=== PATIENT | male | born 1990 | race American Indian/Alaskan Native ===

== ENCOUNTER 2016-12-19 07:17 | Emergency (ER) | payer OTHER ==
[2016-12-19] MEDS ORDERED: NORCO 5/325 PO ONE (07:49)
[2016-12-19] MEDS ORDERED: BOOSTRIX IM ONE (07:49)
[2016-12-19] MEDS ORDERED: TRIPLE ANTIBIOTIC TP ONE (07:50)
[2016-12-19] MEDS ORDERED: XYLOCAINE 1% MPF 5 mL INFILTRATI ONE (08:22)
--- NOTE | 2016-12-19 09:40 | Emergency Department Report ---
- General Chief Complaint: Wound/Laceration Stated Complaint: NOSE LAC Time Seen by Provider: 12/19/16 07:48 Source: patient Mode of arrival: Ambulatory Limitations: No Limitations - History of Present Illness Initial Comments: Patient presents with right nasal laceration. He states that he was sleeping this morning with a broom that the top had broken off with metal exposed, he states his dog hit the perineum and it lacerated his nose. He is not up-to- date on his tetanus shot. He complains of pain 06/13. His blood pressure is slightly elevated, he states he has no history of hypertension. -: Sudden Location: face Place: home Patient Tetanus UTD: No Context: accidental Associated Symptoms: pain - Related Data Previous Rx's Medication Instructions Recorded Last Taken Type Cephalexin [Keflex] 500 mg PO Q12HR #14 cap 12/19/16 Unknown Rx Ibuprofen [Motrin 800 MG tab] 800 mg PO Q8HR PRN #20 tablet 12/19/16 Unknown Rx Allergies Allergy/AdvReac Type Severity Reaction Status Date / Time No Known Allergies Allergy Unverified 12/19/16 07:26 ED Review of Systems ROS: Stated complaint: NOSE LAC Other details as noted in HPI Constitutional: denies: chills, fever ENT: other (patient admits to breathe normally through her right nostril). denies: ear pain, throat pain Respiratory: denies: cough, shortness of breath, wheezing Cardiovascular: denies: chest pain, palpitations Endocrine: no symptoms reported Gastrointestinal: denies: abdominal pain, nausea, diarrhea Musculoskeletal: other. denies: back pain, joint swelling, arthralgia Skin: denies: rash, lesions Neurological: denies: headache, weakness, paresthesias ED Past Medical Hx - Past Medical History Previous Medical History?: No - Surgical History Past Surgical History?: No - Social History Smoking Status: Never Smoker Substance Use Type: None - Medications Home Medications: Home Medications Medication Instructions Recorded Confirmed Last Taken Type Cephalexin [Keflex] 500 mg PO Q12HR #14 cap 12/19/16 Unknown Rx Ibuprofen [Motrin 800 MG tab] 800 mg PO Q8HR PRN #20 tablet 12/19/16 Unknown Rx ED Physical Exam - General Limitations: No Limitations General appearance: alert, in no apparent distress - Head Head exam: Present: atraumatic, normocephalic - Eye Eye exam: Present: normal appearance, PERRL - ENT ENT exam: Present: mucous membranes moist - Neck Neck exam: Present: normal inspection, full ROM. Absent: tenderness - Respiratory Respiratory exam: Present: normal lung sounds bilaterally. Absent: respiratory distress - Cardiovascular Cardiovascular Exam: Present: regular rate, normal rhythm. Absent: systolic murmur, diastolic murmur, rubs, gallop - GI/Abdominal GI/Abdominal exam: Present: soft, normal bowel sounds - Neurological Exam Neurological exam: Present: alert, oriented X3, CN II-XII intact, normal gait - Psychiatric Psychiatric exam: Present: normal affect, normal mood - Skin Skin exam: Present: warm, dry, intact, normal color, other (laceration to right near edges are approximated well. There does not appear to be any swelling, redness, mild bleeding.). Absent: rash ED Course Vital Signs 12/19/16 12/19/16 07:27 08:04 Temperature 98.7 F Pulse Rate 69 Respiratory 18 16 Rate Blood Pressure 168/95 O2 Sat by Pulse 97 Oximetry - Reevaluation(s) Reevaluation #1: 12/19/16 10:[address] Burnham about this patient, showed him a picture, he advises to suture and have patient f/u with plastic surgeon. - Laceration /Wound Repair Right Nose Wound Location: face Wound Length (cm): 3 (laceration if from the middle of the nare in a chew shape around to lateral aspect of nare.) Wound Explored: clean Irrigated w/ Saline (ccs): 150 Betadine Prep?: Yes Anesthesia: 1% Lidocaine Volume Anesthetic (ccs): 2 Wound Debrided: dried blood removed Wound Repaired With: sutures Suture Size/Type: 4:0 Number of Sutures: 6 Layer Closure?: Yes Sterile Dressing Applied?: Yes Progress: Patient tolerated well ED Medical Decision Making - Medical Decision Making Patient presents with laceration from metal broom to his right nostril. He was given a tetanus shot and hydrocodone 5 mg for pain. 6 sutures were placed in right nostril, patient tolerated well. I will give him Keflex twice a day 7 days and ibuprofen 800 mg every 8 hours for pain. I will advise to follow-up in 3-5 days for suture removal. I have advised patient to follow up with plastic surgeon soon or he risks deformity, trouble breathing through nostril, etc. risks discussed with patient and he states he understands. - Differential Diagnosis laceration, fracture Critical Care Time: No Critical care attestation.: If time is entered above; I have spent that time in minutes in the direct care of this critically ill patient, excluding procedure time. ED Disposition Clinical Impression: Laceration of nose Disposition: DISCHARGED TO HOME OR SELFCARE Is pt being admited?: No Does the pt Need Aspirin: No Condition: Stable Instructions: Suture Care (ED), Laceration (ED) Additional Instructions: Keep wound clean, dry and covered until healed. F/u up in 3-5 days for suture removal. It is strongly advised to follow up with a plastic surgeon. Not doing so can lead to deformity of your nose, difficulty with breathing. Risks discussed with patient and he states understanding. Prescriptions: Cephalexin [Keflex] 500 mg PO Q12HR #14 cap Ibuprofen [Motrin 800 MG tab] 800 mg PO Q8HR PRN #20 tablet PRN Reason: Pain Referrals: PRIMARY CARE, [Primary Care Provider] - 3-5 Days Forms: Work/School Release Form(ED) Time of Disposition: 09:52
[2016-12-19 09:42] VITALS: BP 141/93
== END 2016-12-19 10:32 | disposition home or self-care (01) ==
LOC: ED 07:17
DX: S01.21XA Laceration without foreign body of nose, initial encounter (principal); W45.8XXA Other foreign body or object entering through skin, initial encounter; Y93.9 Activity, unspecified; Y92.9 Unspecified place or not applicable; Y99.9 Unspecified external cause status
CPT/HCPCS: 90471; 90715; 99282; A6250